=== PATIENT | male | born 1955 ===

== ENCOUNTER 2022-04-04 20:48 | Emergency (ER) | payer MEDICARE, BC ==
[2022-04-04] MEDS ORDERED: Sodium Chloride 0.9% 10 ML Syringe FLUSH PRN (21:05)
[2022-04-04] MEDS ORDERED: Ondansetron 4 MG/2 ML SDV IVPUSH ONE (21:05)
[2022-04-04] MEDS ORDERED: Sodium Chloride 0.9% 1,000 ML IV SCH (21:15)
[2022-04-04] MEDS ORDERED: Lactated Ringers 1,000 ML IV ONE (22:22)
== END 2022-04-04 22:36 | disposition home or self-care (01) ==
LOC: JD.ED 20:48 → SUPCPDRO 20:48 → JD.ED 22:36
DX: U07.1 COVID-19 (principal); R55 Syncope and collapse; E86.0 Dehydration; I10 Essential (primary) hypertension; Z79.899 Other long term (current) drug therapy; Z72.0 Tobacco use
CPT/HCPCS: 36415; 71045; 80053; 84484; 85025; 86140; 93005; 96361; 96374; 99285; J2405; J3490; J7030; J7120; U0002; 93010; 99284